=== PATIENT | male | born 1950 | race Caucasian/White ===

== ENCOUNTER → 2021-07-13 | Outpatient (CLI) | payer OTHER ==
--- NOTE | 2021-07-13 13:35 | 2DMMODE ---
[place] [address] 2 D/M-MODE ECHOCARDIOGRAM Name: ANGEL CORMIER Room: [facility]#: [id number] Admission: 07/13/21 Attend Phys: Yehuda Gray Discharge: Date of : 48 Date of Service: 07/13/21 1335 Report #: [id number] THIS REPORT FOR: cc: Abdiaziz Cross Bradley Dean DO Holkins,Fabián Higuera MD [facility] ~ APPROVED REPORT Study performed: 07/13/2021 10:46:45 EXAM: Comprehensive 2D, Doppler, and color-flow Echocardiogram Patient Location: Out-Patient BSA: 2.39 HR: 75 bpm BP: 120/62 mmHg Other Information Study Quality: Good Indications CAD 2D Dimensions IVSd: 11.97 (7-11mm) LVOT Diam: 20.22 (18-24mm) LVDd: 46.97 mm PWd: 12.62 (7-11mm) Ascending Ao: 30.91 (22-36mm) LVDs: 21.38 (25-40mm) Aortic Root: 30.81 mm Volumes Left Atrial Volume (Systole) LA ESV Index: 11.40 mL/m2 Aortic Valve AoV Peak Sp.: 1.57 m/s AO Peak Gr.: 9.87 mmHg LVOT Max P.78 mmHg AO Mean Gr.: 6.41 mmHg LVOT Mean P.26 mmHg LVOT Max V: 1.48 m/s AO V2 VTI: 32.84 cm LVOT Mean V: 0.93 m/s CELI (VTI): 3.20 cm2 LVOT V1 VTI: 32.69 cm Mitral Valve E/A Ratio: 0.58 [place] [address] 2 D/M-MODE ECHOCARDIOGRAM Name: ANGEL CORMIER Room: [facility]#: [id number] Admission: 07/13/21 Attend Phys: Yehuda Gray Discharge: Date of : 48 Date of Service: 07/13/21 1335 Report #: [id number] MV Decel. Time: 223.77 ms MV E Max Sp.: 0.49 m/s MV PHT: 64.89 ms MVA (PHT): 3.39 cm2 TDI E/Lateral E': 5.44 E/Medial E': 6.13 Medial E' Sp.: 0.08 m/s Lateral E' Sp.: 0.09 m/s Pulmonary Valve PV Peak Sp.: 1.13 m/s PV Peak Gr.: 5.09 mmHg Tricuspid Valve RAP Estimate: 5.00 mmHg TR Peak Gr.: 25.36 mmHg RVSP: 30.36 mmHg PA Pressure: 30.36 mmHg Left Ventricle The left ventricle is normal size. There is normal LV segmental wall motion. There is normal left ventricular wall thickness. Left ventricular systolic function is normal. The left ventricular ejection fraction is within the normal range. LVEF is 60-65%. Grade I - abnormal relaxation pattern. Right Ventricle The right ventricle is normal size. The right ventricular systolic function is normal. Atria The left atrium size is normal. The right atrium size is normal. Aortic Valve The aortic valve is normal in structure. No aortic regurgitation is present. There is no aortic valvular stenosis. Mitral Valve The mitral valve is normal in structure. There is no mitral valve regurgitation noted. No evidence of mitral valve stenosis. Tricuspid Valve The tricuspid valve is normal in structure. Mild tricuspid regurgitation[place] [address] 2 D/M-MODE ECHOCARDIOGRAM Name: ANGEL CORMIER Room: [facility]#: [id number] Admission: 07/13/21 Attend Phys: Yehuda Gray Discharge: Date of : 48 Date of Service: 07/13/21 1335 Report #: [id number] The pulmonary valve is normal in structure. There is no pulmonic valvular regurgitation. Great Vessels The aortic root is normal in size. IVC is normal in size and collapses >50% with inspiration. Pericardium There is no pericardial effusion. <Conclusion> The left ventricle is normal size. There is normal left ventricular wall thickness. Left ventricular systolic function is normal. The left ventricular ejection fraction is within the normal range. LVEF is 60-65%. Grade I - abnormal relaxation pattern. The right ventricle is normal size. The left atrium size is normal. The aortic valve is normal in structure. The mitral valve is normal in structure. The tricuspid valve is normal in structure. Mild tricuspid regurgitation. IVC is normal in size and collapses >50% with inspiration. There is no pericardial effusion. There is normal LV segmental wall motion. <ELECTRONICALLY SIGNED> By: Fabián Barragan MD, FACC 07/13/21 1335 1335 1335 Fabián Barragan MD, FACC /INF
== END ==
LOC: M.CRD 10:56
PROVIDERS: ATTEND Chiropractor
DX: M19.031 Primary osteoarthritis, right wrist (principal); I36.8 Other nonrheumatic tricuspid valve disorders; I25.9 Chronic ischemic heart disease, unspecified